=== PATIENT | female | born 1950 | race American Indian/Alaskan Native ===

== ENCOUNTER 2017-03-31 11:20 | Outpatient (CLI) | payer MEDICARE ==
--- NOTE | 2017-03-31 12:07 | Mammography Report ---
Bilateral digital mammography with CAD. Comparison study is dated March 27, 2016. Findings: The breasts are fatty replaced generally in the overall pattern is stable. A few circumscribed nodular opacities in the central and lateral right breast are stable. No new masses or architectural distortion. Impression: Stable benign findings. BI-RADS code: 2. Recommendation: Annual screening.
== END 2017-03-31 11:21 | disposition home or self-care (01) ==
LOC: MAMMO 11:20
PROVIDERS: ATTEND Family Medicine
DX: Z12.31 Encounter for screening mammogram for malignant neoplasm of breast (principal)
CPT/HCPCS: 77067; G0202